=== PATIENT | female | born 1945 | race Caucasian/White ===

== ENCOUNTER 2019-08-28 18:43 | Emergency (ER) | payer MEDICAID ==
[~2019-08-28] VITALS: Ht 149.9 cm; Wt 51.7 kg
[~2019-08-28 18:43] MED LIST: ECO81 PO; FOSAMAX70 MG PO; GLUCOPHAGE XR500 MG; GLUCOVANCE PO; HYD25 PO; LAC PO; LOP50 PO; LOT20 PO; LOTENSIN10 MG PO; LOTENSIN40 MG PO; MAC100 PO; METFORMIN HCL850 MG PO; NOR5 PO; OSCD250 PO; PRO30 PO; SIMVASTATIN10 M1; SIMVASTATIN10 M1 PO; ZOCOR40 MG PO
[2019-08-28 19:28] LABS: BASOPHIL % 0.4 % (0-2); PLATELET COUNT 270 x10^3mcL (130-400); RED CELL DISTRIBUTION WIDTH 12.8 % (11.5-14.5)
[2019-08-28 19:33] LABS: microscopic required? YES; urine erythrocyte TRACE (NEGATIVE)
[2019-08-28 19:48] LABS: CALCIUM 8.9 mg/dL (8.5-10.1); CARBON DIOXIDE 29.5 mmol/L (21-32); CHLORIDE SERUM 105 mmol/L (98-107); CREATININE SERUM 0.6 mg/dL (0.6-1.0); GLUCOSE SERUM 159 mg/dL (74-106); POTASSIUM SERUM 4.2 mmol/L (3.5-5.1); SODIUM SERUM 142 mmol/L (136-145)
[2019-08-28 19:53] LABS: ALBUMIN 3.8 g/dL (3.4-5.0); ALKALINE PHOSPHATASE 147 U/L (46-116); ALT/SGPT 16 U/L (14-59); AST/SGOT 16 U/L (15-37); BILIRUBIN TOTAL 0.4 mg/dL (0.20-1.00); HDL CHOLESTEROL 42 mg/dL (40-60)
[2019-08-28 19:54] LABS: CHOLESTEROL 206 mg/dL (<200); TOTAL PROTEIN, SERUM 8.4 g/dL (6.4-8.2)
[2019-08-28 21:32] VITALS: BP 174/57
== END 2019-08-28 21:33 | disposition home or self-care (01) ==
LOC: ED 18:43
PROVIDERS: Emergency Medicine
DX: I10 Essential (primary) hypertension (principal); D72.1 Eosinophilia; E11.9 Type 2 diabetes mellitus without complications; Z90.49 Acquired absence of other specified parts of digestive tract
CPT/HCPCS: 36415; Q0092

== ENCOUNTER 2019-12-21 19:02 | Emergency (ER) | payer MEDICAID ==
[~2019-12-21] VITALS: Ht 165.1 cm; Wt 51.3 kg
[2019-12-21 19:09] VITALS: Ht 165.1 cm; Wt 51.3 kg
[2019-12-21 19:44] LABS: BASOPHIL % 0.4 % (0-2); PLATELET COUNT 285 x10^3mcL (130-400); RED CELL DISTRIBUTION WIDTH 13.3 % (11.5-14.5)
[2019-12-21 20:11] LABS: CALCIUM 9.2 mg/dL (8.5-10.1); CARBON DIOXIDE 27.8 mmol/L (21-32); CHLORIDE SERUM 104 mmol/L (98-107); CREATININE SERUM 0.6 mg/dL (0.6-1.0); GLUCOSE SERUM 136 mg/dL (74-106); POTASSIUM SERUM 3.6 mmol/L (3.5-5.1); SODIUM SERUM 140 mmol/L (136-145)
[2019-12-21 20:15] LABS: ALBUMIN 3.5 g/dL (3.4-5.0); ALKALINE PHOSPHATASE 135 U/L (46-116); ALT/SGPT 17 U/L (14-59); AST/SGOT 14 U/L (15-37); BILIRUBIN TOTAL 0.22 mg/dL (0.20-1.00); MAGNESIUM 2.1 mg/dL (1.8-2.4); TOTAL PROTEIN, SERUM 7.8 g/dL (6.4-8.2)
[2019-12-22 00:39] VITALS: BP 140/57
== END 2019-12-22 00:39 | disposition home or self-care (01) ==
LOC: ED 19:02
PROVIDERS: Emergency Medicine
DX: I10 Essential (primary) hypertension (principal)
CPT/HCPCS: 83880; J3490; Q0092